=== PATIENT | female | born 2000 | race Caucasian/White ===

== ENCOUNTER → 2022-07-28 | Outpatient (CLI) | payer OTHER ==
--- NOTE | 2022-07-28 12:56 | Diagnostic Imaging Report ---
EXAMINATION: Left hand 3 views HISTORY: Hand swelling COMPARISON: None available. FINDINGS: There is oblique fracture left fifth metacarpal. No other fracture seen. No dislocation. Joint spaces are normal. IMPRESSION: 1. Oblique left fifth metacarpal fracture. Dictated by: Dictated on workstation # [id number]
== END ==
LOC: RAD 11:50
PROVIDERS: ATTEND Emergency Medicine
DX: S62.307A Unspecified fracture of fifth metacarpal bone, left hand, initial encounter for closed fracture (principal); X58.XXXA Exposure to other specified factors, initial encounter
CPT/HCPCS: 73130

== ENCOUNTER 2022-09-08 04:34 | Emergency (ER) | payer OTHER ==
[2022-09-08] MEDS ORDERED: morphine INJ 10 MG/ML 1ML (SYR OR VIAL) IVP STA (04:43)
[2022-09-08] MEDS ORDERED: NS IV 1000 ML 1,000 ML IV SCH (04:45)
[2022-09-08] MEDS ORDERED: KETOROLAC 15 MG/ML VIAL IVP ONE (04:45)
[2022-09-08] MEDS ORDERED: ONDANSETRON 4 MG/2 ML (SDV) Z0FRAN IVP ONE (04:45)
--- NOTE | 2022-09-08 04:49 | ED GU-Female ---
General Chief Complaint: Back Problems Stated Complaint: RT SIDE PAIN Source: patient Exam Limitations: no limitations (GERARD LOWRY DO) History of Present Illness Date Seen by Provider: Sep 08, 2022 Time Seen by Provider: 04:40 Initial Comments 21-year-old female presents to the emergency department today for right flank pain. Symptoms started about 7:00 yesterday morning and have persisted and worsened. Is described as sharp stabbing pain in the right flank region with radiation to the right anterior abdomen. She has significant family history of kidney stones. This may be the same. She began having hematuria this morning. She has some mild dysuria as well. No fevers or chills. She has nausea without vomiting. She has had no abdominal surgeries. Last menstrual cycle was 2 weeks ago normal for her. No changes in bowels. No vaginal symptoms. Pain is severe (GERARD LOWRY DO) Allergies and Home Medications Allergies Coded Allergies: No Known Drug Allergies (Unverified , 09/08/22) Patient Home Medication List Home Medication List Reviewed: Yes (GERARD LOWRY DO) Cefdinir (Cefdinir) 300 Mg Capsule, 300 MG PO BID Prescribed by: LASHA HULL on 09/08/22 0610 Ketorolac Tromethamine (Ketorolac Tromethamine) 10 Mg Tablet, 10 MG PO Q8H Prescribed by: LASHA HULL on 09/08/22 0610 Ondansetron (Ondansetron Odt) 4 Mg Tab.rapdis, 4 MG SL Q6H PRN for NAUSEA/VOM ITING Prescribed by: LASHA HULL on 09/08/22 0610 Oxycodone HCl (Oxycodone HCl) 5 Mg Tablet, 5 MG PO Q6H PRN for PAIN-SEVERE (8- 10) Prescribed by: LASHA HULL on 09/08/22 0610 Tamsulosin HCl (Flomax) 0.4 Mg Cap, 0.4 MG PO DAILY Prescribed by: LASHA HULL on 09/08/22 0610 Review of Systems Review of Systems Constitutional: no symptoms reported EENTM: no symptoms reported Respiratory: no symptoms reported Cardiovascular: no symptoms reported Gastrointestinal: abdominal pain (RLQ), nausea Genitourinary: dysuria, flank pain, hematuria Musculoskeletal: no symptoms reported Skin: no symptoms reported Psychiatric/Neurological: No Symptoms Reported Endocrine: No Symptoms Reported Hematologic/Lymphatic: No Symptoms Reported (GERARD LOWRY DO) Past Lmccaqs-Szowvf-Hfoqjz Hx Patient Social History Tobacco Use?: No Use of E-Cig and/or Vaping dev: No Substance use?: No Alcohol Use?: No (GERARD LOWRY L DO) Past Medical History Surgery/Hospitalization HX: WTE (GERARD LOWRY L DO) Family Medical History Reviewed Nursing Family Hx (GERARD LOWRY DO) Other Conditions/Hx (kidney stones) (JOHN LOWRYH L DO) Physical Exam Vital Signs Vital Signs - First Documented 09/08/22 04:39 Temp 36.7 Pulse 119 Resp 18 B/P (MAP) 152/102 (119) Pulse Ox 98 O2 Delivery Room Air (LASHA HULL MD) Vital Signs Capillary Refill : (GERARD LOWRY DO) Height, Weight, BMI Height: '" Weight: lbs. oz. kg; BMI Method: General Appearance: WD/WN, moderate distress HEENT: normal ENT inspection, pharynx normal Neck: non-tender, supple, normal inspection Cardiovascular: no edema, no gallop, no murmur, tachycardia Respiratory: chest non-tender, lungs clear, normal breath sounds, no respirato ry distress, no accessory muscle use Gastrointestinal: normal bowel sounds, non tender, soft, no organomegaly, no pulsatile mass, other (R flank pain) Back: normal inspection, no vertebral tenderness, CVA tenderness (R) Extremities: normal range of motion, non-tender, normal inspection, no pedal edema, no calf tenderness, normal capillary refill Neurologic/Psychiatric: alert, normal mood/affect, oriented x 3 Skin: normal color, warm/dry (GERARD LOWRY DO) Progress/Results/Core Measures Suspected Sepsis SIRS Temperature: Pulse: Respiratory Rate: Laboratory Tests 09/08/22 05:05: Blood Pressure / Mean: Laboratory Tests 09/08/22 05:05: Creatinine 0.84, Total Bilirubin 0.6 (JOHN LOWRYH L DO) Results/Orders Lab Results Laboratory Tests Test 09/08/22 04:40 09/08/22 05:05 Range/Units Urine Color ORANGE Urine Clarity CLEAR Urine pH 5.5 5-9 Urine Specific [place] 1.025 H 1.016-1.022 Urine Protein 1+ H NEGATIVE Urine Glucose (UA) TRACE H NEGATIVE Urine Ketones NEGATIVE NEGATIVE Urine Nitrite POSITIVE H NEGATIVE Urine Bilirubin NEGATIVE NEGATIVE Urine Urobilinogen 2.0 < = 1.0 MG/DL Urine Leukocyte Esterase TRACE H NEGATIVE Urine RBC (Auto) 3+ H NEGATIVE Urine RBC 50-100 H /HPF Urine WBC NONE /HPF Urine Squamous Epithelial Cells 25-50 H /HPF Urine Crystals NONE /LPF Urine Bacteria MODERATE H /HPF Urine Casts NONE /LPF Urine Mucus MODERATE H /LPF Urine Culture Indicated YES White Blood Count 13.2 H 4.3-11.0 10^3/uL Red Blood Count 4.81 3.80-5.11 10^6/uL Hemoglobin 13.4 11.5-16.0 g/dL Hematocrit 40 35-52 % Mean Corpuscular Volume 83 80-99 fL Mean Corpuscular Hemoglobin 28 25-34 pg Mean Corpuscular Hemoglobin Concent 34 32-36 g/dL Red Cell Distribution Width 12.6 10.0-14.5 % Platelet Count 378 130-400 10^3/uL Mean Platelet Volume 10.3 9.0-12.2 fL Immature Granulocyte % (Auto) 0 % Neutrophils (%) (Auto) 75 42-75 % Lymphocytes (%) (Auto) 19 12-44 % Monocytes (%) (Auto) 5 0-12 % Eosinophils (%) (Auto) 1 0-10 % Basophils (%) (Auto) 1 0-10 % Neutrophils # (Auto) 9.9 H 1.8-7.8 10^3/uL Lymphocytes # (Auto) 2.6 1.0-4.0 10^3/uL Monocytes # (Auto) 0.6 0.0-1.0 10^3/uL Eosinophils # (Auto) 0.1 0.0-0.3 10^3/uL Basophils # (Auto) 0.1 0.0-0.1 10^3/uL Immature Granulocyte # (Auto) 0.1 0.0-0.1 10^3/uL Sodium Level 137 135-145 MMOL/L Potassium Level 4.0 3.6-5.0 MMOL/L Chloride Level 107 98-107 MMOL/L Carbon Dioxide Level 16 L 21-32 MMOL/L Anion Gap 14 5-14 MMOL/L Blood Urea Nitrogen 13 7-18 MG/DL Creatinine 0.84 0.60-1.30 MG/DL Estimat Glomerular Filtration Rate 101 BUN/Creatinine Ratio 15 Glucose Level 140 H 70-105 MG/DL Calcium Level 9.7 8.5-10.1 MG/DL Corrected Calcium 9.5 8.5-10.1 MG/DL Total Bilirubin 0.6 0.1-1.0 MG/DL Aspartate Amino Transf (AST/SGOT) 13 5-34 U/L Alanine Aminotransferase (ALT/SGPT) 14 0-55 U/L Alkaline Phosphatase 71 40-136 U/L Total Protein 7.5 6.4-8.2 GM/DL Albumin 4.2 3.2-4.5 GM/DL Serum Test, Qualitative NEGATIVE NEGATIVE (LASHA HULL MD) My Orders Orders - LASHA HULL MD Oxycodone Immediate Rel Tablet (Oxyir Ta (09/08/22 06:15) (LASHA HULL MD) Medications Given in ED Current Medications Medications Dose Ordered Sig/Chanel Route Start Time Stop Time Status Last Admin Dose Admin Ceftriaxone Sodium/Dextrose 50 ml @ 100 mls/hr ONCE ONCE IV 09/08/22 05:45 09/08/22 06:14 DC 09/08/22 05:38 100 MLS/HR Fentanyl Citrate 100 mcg ONCE PRN IVP 09/08/22 05:30 09/08/22 06:15 100 MCG Glycopyrrolate 0.4 mg ONCE ONCE IM 09/08/22 05:30 09/08/22 05:31 DC 09/08/22 05:38 0.4 MG Ketorolac Tromethamine 15 mg ONCE ONCE IVP 09/08/22 04:45 09/08/22 04:48 DC 09/08/22 05:10 15 MG Ondansetron HCl 8 mg ONCE ONCE IVP 09/08/22 04:45 09/08/22 04:48 DC 09/08/22 05:11 8 MG Oxycodone HCl 5 mg ONCE ONCE PO 09/08/22 06:15 09/08/22 06:16 DC 09/08/22 06:16 5 MG (LASHA HULL MD) Vital Signs/I&O 09/08/22 09/08/22 09/08/22 04:39 05:15 06:22 Temp 36.7 Pulse 119 81 97 Resp 18 18 B/P (MAP) 152/102 (119) 186/109 (134) 146/88 Pulse Ox 98 100 O2 Delivery Room Air Room Air (LASHA HULL MD) Vital Signs/I&O Capillary Refill : (GERARD LOWRY DO) Progress Note : Progress Note Took signout from the patient's pending reassessment from pain relief. Patient received IV morphine followed by IV fentanyl. Pain significantly better, nausea gone at this time. CT read my interpretation with what appears to be roughly a 5 mm ureterolithiasis mid ureter. Patient received antibiotics for concerns for infection as well. Well-appearing at this time, appears much more comfortable than what she states she was earlier. I believe she is stable for discharge with outpatient follow-up. She was sent home with strict return precautions (LASHA HULL MD) Diagnostic Imaging Diagonstic Imaging: CT Plain Films/CT/US/NM/MRI: abdomen, pelvis Comments Per stat rad read, 4 mm proximal right ureteral calculus with mild to moderate right hydronephrosis and perinephric edema Reviewed: Reviewed [place] Study (LASHA HULL MD) Departure Communication (Admissions) Patient still having significant pain after morphine and Toradol. Mother states that fentanyl has helped her better in the past. We will go ahead and try this with some Robin[place]. CT scan on my read shows around a 5 mm stone proximal right ureter with hydronephrosis. She does have bacteria and nitrite in her urine. It is slightly contaminated with no white blood cells and no leukoesterase. We will give her a dose of Rocephin here though ultimately it is unclear if this is from contamination or actual infection. We will continue to work on pain control for now. Nausea has improved with provided medications. (GERARD LOWRY DO) Impression Primary Impression: Ureterolithiasis Additional Impressions: Renal colic on right side UTI (urinary tract infection) Qualified Codes: N30.01 - Acute cystitis with hematuria Disposition: HOME, SELF-CARE Condition: Stable Departure-Patient Inst. Decision time for Depature: 06:30 (LASHA HULL MD) Referrals: NO,LOCAL PHYSICIAN (PCP) Primary Care Physician MONIQUE EDWARDS MD Patient Instructions: Kidney Stone, Adult ED Add. Discharge Instructions: It does appear like you have a kidney stone there on the right. Take the Toradol as needed for pain as well as the Zofran as needed for nausea. If you have pain on top of that, take the oxycodone. You will also be on an antibiotic for the next week. Since you received an antibiotic in the ER, you will take your first dose tomorrow. Please follow-up with a urologist as soon as you are able. Scripts Cefdinir (Cefdinir) 300 Mg Capsule 300 MG PO BID for 7 Days, #14 CAP 0 Refills Prov: LASHA HULL MD 09/08/22 Tamsulosin HCl (Flomax) 0.4 Mg Cap 0.4 MG PO DAILY for 30 Days, #30 CAP Prov: LASHA HULL MD 09/08/22 Ondansetron (Ondansetron Odt) 4 Mg Tab.rapdis 4 MG SL Q6H PRN for NAUSEA/VOMITING for 5 Days, #20 TAB Prov: LASHA HULL MD 09/08/22 Ketorolac Tromethamine (Ketorolac Tromethamine) 10 Mg Tablet 10 MG PO Q8H for 4 Days, #12 TAB Prov: LASHA HULL MD 09/08/22 Oxycodone HCl (Oxycodone HCl) 5 Mg Tablet 5 MG PO Q6H PRN for PAIN-SEVERE (8-10) for 4 Days, #16 TAB Prov: LASHA HULL MD 09/08/22 Work/School Note: Family Work Note, Patient Received Medical Care In the Emergency Department On: Sep 08, 2022 Patient Will Be Able to Return to Work/School On: Sep 09, 2022 Work Release Form Date Seen in the Emergency Department: Sep 08, 2022 Return to Work: Sep 10, 2022 Restrictions: No Restrictions ESSENCEGERARD DO Sep 08, 2022 04:49 LASHA HULL MD Sep 08, 2022 06:11
[2022-09-08 04:53] LABS: BILIRUBIN,URINE NEGATIVE (NEGATIVE); CLARITY,URINE CLEAR; COLOR,URINE ORANGE; GLUCOSE, URINE (UA) TRACE (NEGATIVE); KETONES,URINE NEGATIVE (NEGATIVE); LEUKOCYTE ESTERASE ,URINE TRACE (NEGATIVE); NITRITE,URINE POSITIVE (NEGATIVE); PH,URINE 5.5 (5-9); PROTEIN,URINE 1+ (NEGATIVE)
[2022-09-08 05:10] LABS: BACTERIA,URINE MODERATE /HPF; RBC,URINE 50-100 /HPF
[2022-09-08 05:11] LABS: SQUAMOUS EPITHELIAL CELL,UR 25-50 /HPF
[2022-09-08 05:28] LABS: BASOPHILS # (AUTO) 0.1 10^3/uL (0.0-0.1); BASOPHILS % (AUTO) 1 % (0-10); EOSINOPHILS # (AUTO) 0.1 10^3/uL (0.0-0.3); EOSINOPHILS % (AUTO) 1 % (0-10); HEMATOCRIT 40 % (35-52); HEMOGLOBIN 13.4 g/dL (11.5-16.0); LYMPHOCYTES # (AUTO) 2.6 10^3/uL (1.0-4.0); LYMPHOCYTES % (AUTO) 19 % (12-44); MEAN CORPUSCULAR HEMOGLOBIN 28 pg (25-34); MEAN CORPUSCULAR HGB CONC 34 g/dL (32-36); MEAN CORPUSCULAR VOLUME 83 fL (80-99); MEAN PLATELET VOLUME 10.3 fL (9.0-12.2); MONOCYTES # (AUTO) 0.6 10^3/uL (0.0-1.0); MONOCYTES % (AUTO) 5 % (0-12); NEUTROPHILS # (AUTO) 9.9 10^3/uL (1.8-7.8); NEUTROPHILS % (AUTO) 75 % (42-75); PLATELET COUNT 378 10^3/uL (130-400); WHITE BLOOD COUNT 13.2 10^3/uL (4.3-11.0)
[2022-09-08 05:30] LABS: ALBUMIN 4.2 GM/DL (3.2-4.5)
[2022-09-08] MEDS ORDERED: GLYCOPYRROLATE 0.2 MG/ML (ROBINUL) 2 ML VIAL IM ONE (05:30)
[2022-09-08 05:32] LABS: CALCIUM 9.7 MG/DL (8.5-10.1)
[2022-09-08 05:33] LABS: TOTAL PROTEIN 7.5 GM/DL (6.4-8.2)
[2022-09-08 05:35] LABS: BILIRUBIN,TOTAL 0.6 MG/DL (0.1-1.0)
[2022-09-08 05:36] LABS: CREATININE SERUM 0.84 MG/DL (0.60-1.30)
[2022-09-08] MEDS: fentaNYL INJ 100 MCG/2 ML AMP IVP PRN ×2 (05:39→06:15)
[2022-09-08] MEDS ORDERED: cefTRIAXone 1 GM PRE-MIX 50 ML IV ONE (05:45)
[2022-09-08] MEDS ORDERED: ONDA4TAB11 SL (06:10)
[2022-09-08] MEDS ORDERED: CEFD300C3 PO (06:10)
[2022-09-08] MEDS ORDERED: TMSL.4C PO (06:10)
[2022-09-08] MEDS ORDERED: KETO10TA PO (06:10)
[2022-09-08] MEDS ORDERED: OXYC5TAB PO (06:10)
[2022-09-08 06:22] VITALS: BP 146/88
--- NOTE | 2022-09-08 06:37 | Diagnostic Imaging Report ---
PROCEDURE: CT urinary tract, rule out kidney stone. TECHNIQUE: Multiple contiguous axial images were obtained through the abdomen and pelvis without the use of intravenous contrast. Auto Exposure Controls were utilized during the CT exam to meet ALARA standards for radiation dose reduction. INDICATION: Right flank pain COMPARISON: None available. FINDINGS: The visualized lung bases are clear. The unenhanced liver and spleen are unremarkable. The adrenal glands are unremarkable. The pancreas is unremarkable. The gallbladder is unremarkable. A 4 mm calculus is identified within the right ureteropelvic junction. This is resulting in moderate right-sided hydronephrosis. Multiple additional right-sided renal calculi are present. A few small nonobstructing left renal calculi are present. The left ureter is unremarkable. No aneurysmal dilatation of the abdominal aorta. The appendix is unremarkable. Urinary bladder is decompressed, therefore not well evaluated. The uterus and adnexal structures are unremarkable for age. No bowel obstruction or pneumatosis. No significant adenopathy or free air. No large volume free fluid. No acute osseous abnormality. IMPRESSION: A 0.4 cm calculus within the right ureteropelvic junction resulting in moderate right-sided hydronephrosis. Additional bilateral small renal calculi, nonobstructing on the left. Dictated by: Dictated on workstation # [id number]
== END 2022-09-08 06:34 | disposition home or self-care (01) ==
LOC: EDUNIT# 04:34 → ER 04:36
DX: N13.2 Hydronephrosis with renal and ureteral calculous obstruction (principal); N39.0 Urinary tract infection, site not specified; N23 Unspecified renal colic; Z32.02 Encounter for pregnancy test, result negative
CPT/HCPCS: 36415; 74176; 80053; 81000; 84703; 85025; 87077; 87088